=== PATIENT | female | born 1955 | race African-American/Black ===

== ENCOUNTER 2018-04-17 06:02 | Observation (INO) | payer OTHER ==
[~2018-04-17 06:02] MED LIST: CLINDAMYCIN 900MG PREMIX 50 ML IV; FERRIC SUBSULFATE 8 ML SOL.W.APPL TP
[2018-04-17] MEDS: IV RINGERS,LACTATED 1000ML 1,000 ML IV (06:47)
[2018-04-17] MEDS ORDERED: MIDAZOLAM HCL/PF 2 MG/2 ML VIAL. (06:55)
[2018-04-17] MEDS ORDERED: fentaNYL PF VIAL 100 MCG/2 ML VIAL (06:56)
[2018-04-17] MEDS ORDERED: LIDOCAINE 1% PF 2 ML VIAL. ID (07:00)
[2018-04-17] MEDS ORDERED: fentaNYL PF VIAL 100 MCG/2 ML VIAL IV ×2 (07:00)
[2018-04-17] MEDS ORDERED: PROCHLORPERAZINE 10 MG/2 ML VIAL. IV ×2 (07:00→08:30)
[2018-04-17] MEDS ORDERED: ONDANSETRON PF 4 MG/2 ML VIAL. IV ×2 (07:00→08:30)
[2018-04-17] MEDS ORDERED: LIDOCAINE 2% PF Vial for OR 5 ML VIAL. (07:02)
[2018-04-17] MEDS ORDERED: ONDANSETRON PF 4 MG/2 ML VIAL. (07:02)
[2018-04-17] MEDS ORDERED: DEXAMETHASONE SOD PHOS 20 MG/5 ML VIAL. (07:02)
[2018-04-17] MEDS ORDERED: PROPOFOL 20 ML IV (07:02)
[2018-04-17] MEDS: ESTROGENS, CONJ VAGINAL CREAM 30GM TUBE. (07:59)
[2018-04-17] MEDS: LIDOCAINE 1%/EPI 1:100,000 20 ML VIAL. INJ (07:59)
[2018-04-17] MEDS ORDERED: ePHEDrine PF IN SALINE 50 MG/5 ML DISP.SYRIN IV (08:02)
[2018-04-17] MEDS ORDERED: CALCIUM CARBONATE 500 MG TAB.CHEW PO (08:30)
[2018-04-17] MEDS ORDERED: diphenhydrAMINE 50 MG/ML VIAL IV (08:30)
[2018-04-17] MEDS ORDERED: ZOLPIDEM 5 MG TABLET. PO (08:30)
[2018-04-17] MEDS ORDERED: DEXTROSE 50% 25 GM / 50ML DISP.SYRIN. IV (08:30)
[2018-04-17] MEDS ORDERED: SIMETHICONE 80 MG TAB.CHEW PO (08:30)
[2018-04-17] MEDS ORDERED: diphenhydrAMINE HCL 25 MG CAPSULE PO (08:30)
[2018-04-17] MEDS ORDERED: 0.9 % SODIUM CHLORIDE 10 ML DISP.SYRIN. IV (08:30)
[2018-04-17] MEDS ORDERED: oxyCODONE/APAP 5/325 1 TAB TABLET PO (08:30)
[2018-04-17] MEDS: KETOROLAC 30 MG/ML INJ. IV (16:41)
[2018-04-17] MEDS: BENZOCAINE/MENTHOL LOZENGE. PO ×2 (16:41→22:05)
[2018-04-17] MEDS: GABAPENTIN 300 MG CAPSULE. PO (22:05)
[2018-04-17] MEDS: IBUPROFEN 100 MG/5 ML ORAL.SUSP. PO (22:46)
[2018-04-18 03:44] LABS: ADD MAN DIFF? NO
[2018-04-18 03:51] LABS: BASO % 0 % (0-3); EOS % 0 % (0-3); HEMATOCRIT 30.9 % (36.0-47.0); HEMOGLOBIN 10.2 g/dL (12.0-15.5); LYMPH # 0.6 x10^3/uL (1.0-4.8); LYMPH % 11 % (24-48); MEAN CORPUSCULAR HEMOGLOBIN 26 pg (25-35); MEAN CORPUSCULAR HGB CONC 33 g/dL (31-37); MEAN CORPUSCULAR VOLUME 80 fL (79-100); MONO # 0.6 x10^3/uL (0.0-1.1); MONO % 11 % (0-9); NEUT # 4.1 x10^3uL (1.8-7.7); NEUT % 78 % (31-73); PLATELET COUNT 163 x10^3/uL (140-400); RED BLOOD COUNT 3.87 x10^6/uL (3.50-5.40); WHITE BLOOD COUNT 5.2 x10^3/uL (4.0-11.0)
[2018-04-18] MEDS: GABAPENTIN 300 MG CAPSULE. PO (06:00)
[2018-04-18] MEDS: BENZOCAINE/MENTHOL LOZENGE. PO (06:12)
== END 2018-04-18 16:48 | disposition home or self-care (01) ==
LOC: SURG 06:02 → 3 NORTH 10:32
DX: N89.0 Mild vaginal dysplasia (principal)
CPT/HCPCS: 36415; 85025; 96374; A7015; G0378; G0379; J1100; J1885; J2001; J2250; J2405; J2704; J3010; J3490; J7120